=== PATIENT | female | born 1980 | race Caucasian/White ===

== ENCOUNTER → 2019-11-07 16:57 | Outpatient (BNVA) | payer OTHER, SELFPAY | PROVIDERS: Visit Provider Emergency Medicine | DX: Z20.828 Contact with and (suspected) exposure to other viral communicable diseases (principal); Z11.59 Encounter for screening for other viral diseases | CPT/HCPCS: 87635 ==

== ENCOUNTER 2021-01-24 18:26 | Emergency (ER) | payer OTHER, SELFPAY ==
[2021-01-24 18:28] VITALS: BP 107/68; PULSE 99; RESP 20; TEMP 36.8; O2SAT 100
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
[2021-01-24 19:15] VITALS: RESP 21
[2021-01-24] MEDS: ondansetron 2 mg/ML SDV 2 mL 4 MG IVP (19:15)
[2021-01-24] MEDS: morphine 4 mg/mL SDV 1 mL IVP (19:15)
[2021-01-24] MEDS: sodium bicarbonate 8.4% 1 mEq/mL 50mL Syr 50 MEQ IVP (20:06)
[2021-01-24] MEDS: LORazepam 2 mg/mL INJ 1 mL IVP (20:58)
[2021-01-24 21:10] VITALS: BP 107/74; PULSE 113; O2SAT 98
--- NOTE | 2021-01-25 12:09 | PC.SOCIAL ---
Addendum entered by Courtney Singh, RN 01/25/21 14:14: Pt returned call and she has appt with Jasonsaint louis on 02/08/2020 and we discussed that this nurse was unable to get an earlier appt scheduled. She will keep this appt on date above at 7:45am. Original Note: Referral from ED to see dentist in 24-48 hours. Called patient but was unable to reach. Left message. Called and he indicates someone has gotten her into to a dentist on 02/08/2020 but if can sooner that would be better. This nurse called [facility] and Dr Bob. Neither have her on schedule and earliest available is 02/11/[address] at [address] clinics[address] Called Dr Meza dentist office and they are booked out to March and she is not on their schedule. Tried to call Dr Clay office but they are closed for lunch. Will await call from patient as well if she does have appt for 02/08/2020 may be the earliest one available.
[2021-07-29 09:45] LABS: Chol HDL Ratio 2.15 mg/dL (0.0-4.40); Cholesterol 140 mg/dL (0-200); Glucose 94 mg/dL (65-115); HDL Cholesterol 65 mg/dL (60-100); LDL Cholesterol Calculated 65 mg/dL (50-129); Triglycerides 50 mg/dL (0-150)
[2021-07-29 11:38] LABS: Estmated Average Glucose 97
== END 2021-01-24 20:40 | disposition home or self-care (01) ==
PROVIDERS: Emergency Provider Emergency Medicine
DX: S01.512A Laceration without foreign body of oral cavity, initial encounter (principal); S03.2XXA Dislocation of tooth, initial encounter; V47.5XXA Car driver injured in collision with fixed or stationary object in traffic accident, initial encounter
CPT/HCPCS: 12013; 70450; 70486; 96374; 96375; 99283; J2060; J2270; J2405